=== PATIENT | female | born 1965 | race Caucasian/White ===

== ENCOUNTER 2016-07-09 07:05 | Day surgery (SDC) | payer OTHER, MEDICAID ==
[2016-07-09] MEDS ORDERED: BUPIVACAINE 0.5% 30 ML SDV ONE (08:03)
[2016-07-09] MEDS ORDERED: DEPO METHYLPREDNISOLONE 80 MG/ML SDV ONE (08:03)
[2016-07-09] MEDS ORDERED: MIDAZOLAM 2 MG/2 ML VIAL ONE (08:07)
[2016-07-09] MEDS ORDERED: fentaNYL 100 MCG/2 ML INJ ONE ×2 (08:16→09:48)
[2016-07-09] MEDS ORDERED: KETAMINE 100 MG/10 ML SYR IVP ONE (08:16)
[2016-07-09] MEDS ORDERED: GLYCOPYRROLATE 0.2 MG/1 ML VIAL ONE (08:33)
[2016-07-09] MEDS ORDERED: PROPOFOL 200 MG/20 ML VIAL ONE (09:17)
[2016-07-09] MEDS ORDERED: IOPAMIDOL (ISOVUE-M 300) 15 ML VIAL IV ONE (09:21)
[2016-07-09] MEDS ORDERED: ACETAMINOPHEN 500 MG TAB ONE (09:48)
[2016-07-09] MEDS ORDERED: ACETAMINOPHEN 325 MG TAB PO PRN (09:58)
[2016-07-09] MEDS ORDERED: OXYCODONE/APAP 5/325 TAB PO PRN (10:05)
[2016-07-09] MEDS ORDERED: ONDANSETRON 4 MG/2 ML VIAL IVP PRN (10:06)
[2016-07-09] MEDS ORDERED: OXYCODONE/APAP 5/325 TAB ONE (10:46)
== END 2016-07-09 11:05 | disposition home or self-care (01) ==
LOC: FIMAGING 07:05
PROVIDERS: ATTEND Psychiatry & Neurology Neurology
PROC: 3E0X33Z Introduction of Anti-inflammatory into Cranial Nerves, Percutaneous Approach (ICD-10-PCS; principal; 2016-07-09 09:16)
DX: G90.09 Other idiopathic peripheral autonomic neuropathy (principal)
CPT/HCPCS: J1020; J2250; J2704; J3010; Q9967

== ENCOUNTER → 2018-06-03 | Outpatient (CLI) | payer OTHER | LOC: GIMAGING 14:06 → EDSTATUS 16:17 | PROVIDERS: ATTEND Internal Medicine | DX: Z01.818 Encounter for other preprocedural examination (principal); J44.9 Chronic obstructive pulmonary disease, unspecified | CPT/HCPCS: 71046-PO ==